=== PATIENT | male | born 1965 | race Caucasian/White ===

== ENCOUNTER → 2016-06-08 | Day surgery (SDC) | payer OTHER ==
[~2016-06-08] VITALS: Ht 172.7 cm; Wt 77.1 kg
[2016-06-08 10:36] LABS: ABSOLUTE BASOPHIL COUNT 0 /CUMM (0.0-0.2); ABSOLUTE EOSINOPHIL COUNT 0.2 /CUMM (0.0-0.7); ABSOLUTE GRANULOCYTE CT 5.9 /CUMM (1.4-6.5); ABSOLUTE LYMPH COUNT 1.6 /CUMM (1.2-3.4); ABSOLUTE MONOCYTE COUNT 0.5 /CUMM (0.10-0.60); BASOPHIL % 0.3 % (0.0-2.0); EOSINOPHIL % 2.6 % (0-5); GRANULOCYTE % 72.1 % (42.2-75.2); HEMATOCRIT 44.7 % (42-52); MEAN CORPUSCULAR HGB 29.5 PG (27.0-31.0); MEAN CORPUSCULAR HGB CONC 33.9 G/DL (33.0-37.0); MEAN CORPUSCULAR VOLUME 87.1 FL (80.0-94.0); MEAN PLATELET VOLUME 9.1 FL (7.4-10.4); PLATELET COUNT 176 /CUMM (130-400); RBC DISTRIBUTION WIDTH 13.1 % (11.5-14.5); RED BLOOD CELL CT 5.13 /CUMM (4.70-6.10); WHITE BLOOD CELL COUNT 8.3 /CUMM (4.8-10.8)
--- NOTE | 2016-06-08 13:24 | Operative Report ---
Operative/Inv Procedure Report Surgery Date: 06/08/16 Name of Procedure: 1. exam under anesthesia 2. right lateral internal sphincterotomy 3. 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 Patient never had colonoscopy. Patient was seen in the office 3 months ago with a painful posterior midline anal fissure. The fissure was treated with medical therapy, including bowel habit modifications and diltiazem compound cream. Medical management failed. Patient presents today for a sphincterotomy. All risks benefits and alternatives to the procedure were explained to patient detail, and she expressed understanding and agreement with the same. Operative/Procedure Note Note: Patient was taken to the operating room. Bilateral lower extremity SCDs were placed on both legs. Perioperative antibiotics were given. General endotracheal anesthesia was established. The patient was placed in the prone jackknife position on the operating table area all pressure points were appropriately padded, and the patient was secured to the operating table. The buttocks were taped apart. The perineum was prepped and draped in the standard surgical fashion. The timeout was carried out. Anal block was administered with 20 mL of plain 1% lidocaine. On anoscopy, there was chronic deep posterior midline anal fissure. There was no evidence of underlying fistula. There was no evidence of perirectal abscess. First, right lateral internal sphincterotomy was carried out. A small incision was made overlying the anal canal mucosa to the level just proximal to the posterior midline fissure. The internal anal sphincter muscle was identified and isolated using the hemostat. The muscle was incised. The mucosa was approximated using the 3-0 Vicryl interrupted sutures. Next, the attention was moved to posterior midline anal fissure. The rectal mucosa proximal to the fascia was slightly mobilized. The anodermal skin tags were also mobilized. There were easily approximated together by covering the fissure. Multiple interrupted 3-0 Vicryl sutures were used. The incision was checked for hemostasis. Exparel was used topically in the end of the case to provide long-term topical analgesic. Gelfoam was placed within the anal canal. The sponge and instrument counts were correct in the end of the procedure. Patient tolerated the procedure well, was wakened up and taken to recovery room in stable condition. Findings: Chronic posterior midline anal fissure Discharge Disposition: home
== END ==
LOC: STS 04:07
PROVIDERS: Surgery
DX: K60.1 Chronic anal fissure (principal); K59.09 Other constipation
CPT/HCPCS: 36415; 93005; 93010; C9290; J0690; J2250